=== PATIENT | female | born 1995 | race Caucasian/White ===

== ENCOUNTER 2021-12-21 05:22 | Inpatient (IN) | payer OTHER ==
[2021-12-21] VITALS (44 sets, daily range): BP systolic 77–127; BP diastolic 34–71
[~2021-12-21] VITALS: Ht 152.4 cm; Wt 50.8 kg
[2021-12-21 06:04] LABS: BE(vivo) -0.8 mmol/L (-2 to +3); HCO3 24.6 mmol/L (22.0-26.0); PCO2 43.5 mmHg (35.0-45.0); PO2 220.5 mmHg (80.0-100.0); pH 7.371 (7.360-7.450); sO2 99.4 % (92.0-98.0)
[2021-12-21 06:05] LABS: HEMATOCRIT 41.5 % (37.0-47.0); HEMOGLOBIN 13.9 gm/dL (12.0-15.0); MCH 30.8 pg (26.0-34.0); MCHC 33.6 g/dL (28.0-37.0); MCV 91.9 fL (80.0-100.0); RBC 4.52 mil/uL (4.20-5.00); RDW 12.6 % (10.5-14.5); WBC 5.7 thou/uL (4.0-11.0)
[2021-12-21 06:20] LABS: URINE BILIRUBIN NEGATIVE (Negative); URINE BLOOD 2+ (Negative); URINE CLARITY CLEAR; URINE COLOR YELLOW; URINE GLUCOSE-RANDOM* NEGATIVE (Negative); URINE KETONES NEGATIVE (Negative); URINE PROTEIN (DIPSTICK) NEGATIVE (Negative); URINE SPECIFIC GRAVITY 1.015 (1.005-1.035); URINE UROBILINOGEN 0.2 E.U./dl (0.2-1.0)
--- NOTE | 2021-12-21 06:23 | NUR ---
PT LIVES WITH VALDEZ MARLEY AND HIS MOTHER, WHO IS A CHEF KITCHEN MANAGER AT THIS FACILITY. WHEN ASKED ABOUT CONTACTING PT MOTHER AND/OR FATHER VALDEZ MARLEY AND HIS MOTHER WERE NOT RECEPTIVE. EXPLAINED THAT WE DOO NEED TO SPEAK TO ONE OF THEM THEY ARE THE LEGAL NEXT OF KIN AND WOULD BE CONTACTED RE MEDICAL DECISIONS. VALDEZ JOSEPH MOTHER PROVIDED ME WITH A PHONE NUMBER STATING THAT IT WAS THE PT BILOGICAL FATHER WHO HAS TRANSITIONED TO LIVING A WOMAN. WHENA ALSO ASKED FOR PT MOTHERS NUMEBER BOTH VALDEZ MARLEY AND HIS MOTHER REFUSED TO PROVIDE ANY INFORMATION. PHONE NUMBER PROVIDED FOR SANTOS(FATHER SHE/HER) [phone]
[2021-12-21 06:28] LABS: ANION GAP 11 mmol/L (7-16); BUN 11 mg/dL (7-18); CHLORIDE 106 mmol/L (98-107); CO2 27 mmol/L (21-32); CREATININE 0.7 mg/dL (0.6-1.0); GLUCOSE 98 mg/dL (74-106); POTASSIUM 3.4 mmol/L (3.5-5.1); SODIUM 144 mmol/L (136-145)
[2021-12-21 06:29] LABS: URINE LEUKOCYTES-REFLEX 1+ (Negative); URINE NITRITE-REFLEX POSITIVE (Negative)
[2021-12-21 06:30] LABS: AMP/METHAMP POSITIVE (Negative); BARBITURATES Negative (Negative); BENZODIAZEPINES Negative (Negative); COCAINE Negative (Negative); METHADONE Negative (Negative); OPIATES Negative (Negative); PCP Negative (Negative)
[2021-12-21 06:39] LABS: ALBUMIN 3.7 g/dL (3.4-5.0); PHOSPHORUS 4.3 mg/dL (2.6-4.7); SALICYLATE < 2.8 mg/dL (2.8-20.0); SGOT 14 U/L (15-37); SGPT 20 U/L (14-59); TOTAL BILIRUBIN 0.2 mg/dL (0.2-1.0)
[2021-12-21 07:10] LABS: BACTERIA-REFLEX >30 Many /HPF (None Seen); MUCUS 0-3 Light strn/LPF (None Seen); SQUAMOUS 4-10 Moderate /LPF (0-3); URINE WBC-REFLEX 6-15 Few /HPF (0-5)
[2021-12-21 07:11] LABS: CASTS None Seen /LPF (None Seen); CRYSTALS None Seen /LPF (None Seen)
[2021-12-21 08:01] LABS: HCO3 24.6 mmol/L (22.0-26.0); PCO2 44.6 mmHg (35.0-45.0); sO2 99.4 % (92.0-98.0)
--- NOTE | 2021-12-21 08:06 | EKG ---
[address] [place] [address] ELECTROCARDIOGRAM REPORT Name: BERNARDO PETERSON Room #: 170-12 ADM IN M.R.#: [id number] Admission: 12/21/21 Attend Phys: Azam Carrasco DO Discharge: Date of : [birth year] Report #: [id number] [facility] ED Test Date: 2021-12-21 Test Time: 07:14:32 Pat Name: BERNARDO PETERSON Department: Room: 170 Gender: F Coat Hanger Shaper Machine Operator: : 1995 Requested By: Ole Feng Order Number: [id number] MD: Adria Maradiaga Measurements Intervals [place] Rate: 102 P: 80 MO: 148 QRS: 91 QRSD: 99 T: 70 QT: 340 QTc: 443 Interpretive Statements Sinus tachycardia Borderline right axis deviation Compared to ECG 12/21/2021 05:57:15 No significant changes Electronically Signed On 12-21-2021 8:06:33 PROMOTIONAL MODEL by Adria Maradiaga [email or web address] <ELECTRONICALLY SIGNED> By: Adria Maradiaga MD, [facility] 12/21/21805 3 3 Adria Maradiaga MD, FACC /EPI
--- NOTE | 2021-12-21 08:06 | EKG ---
[address] [address] ELECTROCARDIOGRAM REPORT Name: BERNARDO PETERSON Room #: 170-12 ADM IN M.R.#: [id number] Admission: 12/21/21 Attend Phys: Azam Carrasco DO Discharge: Date of : [birth year] Report #: [id number] [facility] ED Test Date: 2021-12-21 Test Time: 05:57:15 Pat Name: BERNARDO PETERSON Department: Room: 170 Gender: F Continuing Education Specialist: yovana : 1995 Requested By: Osmin Thomas Order Number: [id number] MD: Adria Maradiaga Measurements Intervals [place] Rate: 124 P: 75 FL: 156 QRS: 117 QRSD: 99 T: 58 QT: 318 QTc: 457 Interpretive Statements Sinus tachycardia Right axis deviation No previous ECG available for comparison Electronically Signed On 12-21-2021 8:06:26 WINDOW GLAZIER by Adria Maradiaga [email or web address] <ELECTRONICALLY SIGNED> By: Adria Maradiaga MD, [facility] 12/21/21 [phone] Adria Maradiaga MD, FACC /EPI
--- NOTE | 2021-12-21 08:16 | NUR ---
Dr. COVARRUBIAS AT BEDSIDE, ASKED ABOUT HOURLY EKG ORDER FOR ICU FLOOR. DR COVARRUBIAS REPORTS DUE TO NO CHANGES IN EKG WE CAN D/C HOURLY EKGS. NO EXISTING ORDERS. SENIOR CORE JAVA DEVELOPER NOTIFIED.
--- NOTE | 2021-12-21 10:00 | EKG ---
[address] [place] [employer] [place] [address] ELECTROCARDIOGRAM REPORT Name: BERNARDO PETERSON Room #: 236-P ADM IN M.R.#: [id number] Admission: 12/21/21 Attend Phys: Azam Carrasco DO Discharge: Date of : [birth year] Report #: [id number] [facility] ED Test Date: 2021-12-21 Test Time: 08:03:30 Pat Name: BERNARDO PETERSON Department: Room: 236 P Gender: F Safe Technician: CARLOS : 1995 Requested By: Ole Feng Order Number: [id number] MD: Valentino Dempsey Measurements Intervals [place] Rate: 96 P: 79 [place]: 145 QRS: 91 QRSD: 100 T: 68 QT: 357 QTc: 452 Interpretive Statements Sinus rhythm Borderline right axis deviation Compared to ECG 12/21/2021 07:14:32 Sinus tachycardia no longer present Electronically Signed On 12-21-2021 10:00:12 EPITAXIAL REACTOR TECHNICIAN by Valentino Dempsey [email or web address] <ELECTRONICALLY SIGNED> By: Valentino Demspey MD, [facility] 12/21/21 1000 [id number] 2 Valentino Dempsey MD, FACC /EPI
--- NOTE | 2021-12-21 11:32 | NUR ---
Case discussed with the care team. Pt newly admitted to the ICU via the ER d/t overdose. Pt is currently intubated, is able to follow commands. History obtained by the unit staff is from pt's sign other and his mother. She reportedly lives with them in [place] and works as a delievery special education bus driver. She has hx of mood disorder and has several prescriptions for mental health. Her uds was + amph/meth. She has health insurance in place. They were resistent to provide next of kin information for pt's parents but ultimately did provide a phone number for her biological father Sheyla who is transgender(she/her) if needed. Pt is improving and will hopefully be able to be extubated within 24hrs. Staff will need to clarify pt's emergency contact/spokesperson with the pt. CM assessment deferred until pt is able to participate. Sariah armas is pending as well. Pt will likely need inpt psych tx once medically stable for suicide attempt.
--- NOTE | 2021-12-21 13:54 | NUR ---
VASCULAR ACCES NOTE TRIPLE LUMEN PICC TO MIKAELA BASILIC VEIN TRIMMED AT 38 CM WITH 0.0 CM EXTERNAL LENGTH. OK TO USE THE PICC LINE. PICC TIP CONFIRMED WITH 3CG/ECG TECHNOLOGY.
[2021-12-21 14:07] LABS: CALCIUM 7.9 mg/dL (8.5-10.1); CREATININE 0.6 mg/dL (0.6-1.0); MAGNESIUM 1.9 mg/dL (1.8-2.4); POTASSIUM 3.4 mmol/L (3.5-5.1)
--- NOTE | 2021-12-21 18:37 | NUR ---
0837: PT ADMITTED FROM ER ON VENTILATOR. PT SUSPECTED OVERDOSE. PT SEDATED ON PROPOFOL. PT VITAL SIGNS STABLE.
[2021-12-22] VITALS (22 sets, daily range): BP systolic 75–108; BP diastolic 33–68
--- NOTE | 2021-12-22 00:42 | NUR ---
2138 - PTS MOM (MARICRUZ) WHO IS DESIGNATED CONTACT CALLED AND WAS REQUESTING AND UPDATE ON PTS CONDITION. PTS MOM WAS ABLE TO GIVE THE SECURITY CODE, AND WAS UPDATED ON PTS STATUS GIVEN. 2219 - PTS GRANDMA CALLED UP AND WAS REQUESTING INFORMATION. SHE DID NOT HAVE THE SECURITY CODE AND NO INFORMATION WAS GIVEN TO HER. 2334 - PTS DAD (MAX, WHO GOES BY [place]) CALLED UP AND WAS ASKING ABOUT PT. HE DID NOT HAVE THE SECURITY CODE AND NO INFORMATION WAS GIVE. DAD WAS STATING PTS LIVING CONDITIONS "WERE NOT ADEQUATE" AND SHES BEING "BOARDED UP" AT HER BOYFRIENDS HOUSE. HE WAS ALSO REQUESTING THAT THE BF AND BF'S MOM NOT BE ABLE TO SEE THE PT WHILE SHE'S HERE THEY ARE BOTH "ADDICTS".
[2021-12-22 03:25] LABS: HEMATOCRIT 32.1 % (37.0-47.0); MCHC 33.6 g/dL (28.0-37.0); MCV 92.5 fL (80.0-100.0); RBC 3.47 mil/uL (4.20-5.00); RDW 12.4 % (10.5-14.5); WBC 7.4 thou/uL (4.0-11.0)
[2021-12-22 03:26] LABS: HEMOGLOBIN 10.8 gm/dL (12.0-15.0)
[2021-12-22 04:07] LABS: ALBUMIN 2.5 g/dL (3.4-5.0); CALCIUM 7.5 mg/dL (8.5-10.1); CREATININE 0.5 mg/dL (0.6-1.0); POTASSIUM 3.3 mmol/L (3.5-5.1); TOTAL BILIRUBIN 0.3 mg/dL (0.2-1.0); TOTAL PROTEIN 5.2 g/dL (6.4-8.2)
--- NOTE | 2021-12-22 08:03 | NUR ---
PT'S MOM, MARICRUZ PRATT, CALLED IN TO CK ON PT, THEN ASKED TO SPEAK TO IN FLIGHT REFUELING CRAFTSMAN. MOM WAS VERY UPSET WHEN SHE WAS INFORMED THAT NO VISITORS ARE ALLOWED UNTIL SEEN BY PSYCH AND PSYCH MAKES DECISION. EXPLAINED REASONING BEHIND RULE. 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 FINALLY STATED SHE UNDERSTOOD BUT NOT HAPPY.ASSURED MOM WE WOULD KEEP HER UPDATED.ALSO INFORMED THAT MOM IS THE ONLY CONTACT WE ARE GIVING INFORMATION OUT TO, AND TO PLEASE PASS THIS ALONG TO PT'S DAD & GR.MOTHER.NO OTHER ISSUES AT THIS TIME.--VW
--- NOTE | 2021-12-22 10:57 | NUR ---
pT EXTUBATED AT 1045 BY RT. PT TOLERATED EXTUBATION WELL. VITAL SIGNS REMAINED STABLE. PT ON ROOM AIR AND SLEEPING COMFORTABLY. SITTER IN ROOM
--- NOTE | 2021-12-22 13:27 | NUR ---
ATTEMPTED TO CONTACT MARICRUZ (MOTHER) PHONE WENT STRAIGHT TO VOICEMAIL. RN LEFT A VOICEMAIL. APPROXIMATELY 15 MINUTES LATER GRANDMOTHER CALLED DEMANDING INFORMATION. RN REMINDED HER THAT ONLY HER MOTHER IS RECEIVING INFORMATION AT THIS TIME AND SHE NEEDS TO CONTACT HER FOR INFORMATION. CAS STARTED TO YELL AND SAY "WHAT ARE YOU ALL HIDING". RN REPLIED WITH THE SAME INFORMATION THAT ONLY MARICRUZ WAS TO RECEIVE INFORMATION. CAS THEN HUNG UP THE PHONE.
[2021-12-23] VITALS (20 sets, daily range): BP systolic 82–103; BP diastolic 35–56
--- NOTE | 2021-12-23 09:32 | NUR ---
0730: RN RECEIVED INFORMATION FROM LANIE SAUNDERS THAT PT'S MOTHER, MARICRUZ, HAS BEEN APPROVED BY THE CNO TO VISIT PT DESPITE POLICY FOR PT TO HAVE NO VISITORS UNTIL CLEARED TO BY PSYCH TEAM. 0920: PT'S MOTHER ARRIVED ON UNIT. RN NOTIFIED LANIE MONTOYA WHO NOTIFIED ENA, NURSE LANDSCAPING MANAGER. PT APPEARS HAPPY TO SEE HER MOTHER, SMILING. PT REPORTS SHE WAS BEING "BORADED UP" BY BOYFRIEND AND HIS MOTHER AND DOES NOT WANT ANYTHING TO DO WITH THEM. PT REQUESTING TO LEAVE HOSPITAL DUE TO HAVING CONCERNS FOR BOYFRIENDS FAMILY MEMBER, KEVIN, WORKING AT [employer]. RN EXPLAINED THAT PT IS SAFE HERE, STAFF HAS BEEN ALERTED AND ONLY PT'S MOTHER AND DIRECTLY APPROVED RELATIVES ARE ABLE TO GAIN INFORMATION VIA TELEPHONE ONCE PRESENTING PT'S SECURITY CODE. RN ALSO REITERATED THAT THERE ARE STRICT VISITING GUIDELINES AND NOBODY ASIDE FROM PT'S MOTHER WILL BE ALLOWED ON UNIT. PT'S MOTHER REINFORCED THAT "WE NEED TO GET YOU BETTER FIRST" AND THEN PT WILL BE ALLOWED TO DISCHARGE TO APPROPRIATE PLACE. RN ENSURED PT WOULD NOT BE DISCHARGED BACK TO HER BOYFRIENDS HOUSE IF THAT IS AN UNSAFE ENVIRONMENT. PT VERBALIZES UNDERSTANDING. RN ALLOWED PT TO HAVE HER GLASSES AND PRINTED PHOTOGRAPHS OF HER SON.
--- NOTE | 2021-12-23 09:36 | NUR ---
0800: ASSESSMENT COMPLETE DOCUMENTED. PT DENIES ANY ACTIVE SUICIDAL IDEATION OR INTENT AT THIS TIME.
--- NOTE | 2021-12-23 09:37 | NUR ---
0930: RN DISCUSSED PT'S HYPOTENSION WITH DR. LARA. NOTIFIED HIM THAT DESPITE REPOSITIONING OF CUFF, AROUSING PT, AND IVF, BP REMAINS IN 80S/40S WITH MAPS BETWEEN 55-60. PT WITH ADEQUATE UOP, HR WNL, DENIES DIZZINESS/LIGHT HEADEDNESS. PER DR. LARA, NO ACUTE CONCERNS DUE TO PT'S AGE AND THAT SHE HAS BEEN IN BED FOR TWO DAYS WITHOUT OTHER SYMPTOMS. TELEPHONE ORDER TO ALLOW PT TO GET UP TO EOB AND MOVE AROUND. OKAY TO DC MOON. WILL CONTINUE TO MONITOR AND NOTIFY DR. LARA IF BP DOES NOT IMPROVE OR WORSENS.
--- NOTE | 2021-12-23 10:10 | NUR ---
0955: DR. LARA AT BEDSIDE. OKAY TO START PT ON REGULAR DIET ONCE CLEARED BY GLASS ENGRAVER. NO ACUTE CHANGES TO POC, AWAIT FURTHER RECS FROM PSYCH.
--- NOTE | 2021-12-23 10:15 | NUR ---
1015: PT'S MOM LEFT TO GO HOME. RN TO UPDATE HER IF ANY CHANGES MADE TO POC.
--- NOTE | 2021-12-23 12:08 | NUR ---
1145: DR. CARABALLO AND ROSY, FROM [facility] AT BEDSIDE FOR EVAL AT THIS TIME.
--- NOTE | 2021-12-23 12:52 | NUR ---
1250: RN DISCUSSED POC WITH DR. LARA. RN REQUESTING IF PT CAN BE DOWNGRADED TO FLOOR STATUS PT MEDICALLY STABLE. OKAY TO CHANGE LEVEL OF CARE TO MED/SURG PER DR. LARA. RN ALSO NOTIFIED DR. LARA THAT PSYCH JUST SAW PT AND IS RECOMMENDING INPATIENT PSYCH SETTING AT [facility], BUT PER BEHAVIORAL HEALTH, UNLIKELY TO BE TODAY DUE TO BED AVAILABILITY.
--- NOTE | 2021-12-23 13:28 | NUR ---
Case discussed in ICU rounds. Psych eval recommending inpt tx. Pt is voluntary. The pt is medically cleared for dc to inpt psych today. [facility] is aware and will be in to visit with the pt. They have indicated that inpt psych beds are tight today. Pt has clarified her mother Amber as her emergency contact and her record has been updated to reflect her request. Pt has 1:[address] Pt's mother spoke with the unit russel Winters and provided extensive psycho/social history. Pt has had a previous inpt psych stay at [facility] in [facility] 2years ago and extensive substance abuse history. Pt's mother has custody of her son. [facility] form and cobra transfer form is on the front of the chart for completion once a inpt psych bed has been located. [facility] will follow.
--- NOTE | 2021-12-23 16:03 | NUR ---
Per collator operator: Karan Burt discussion on 12-22-21: At 1055 collator operator noted: Discussed during Length of Stay (LOS) with the attending physician. The patient remains on a vent, reviewed pulmonary input for extubation. Noted attending placed: A psych consult for DX: of OD/SI. At 1600 collator operator noted: collator operator received a voice message from patient's Mother Amber [phone], requesting a call back. CM spoke with the bedside nurse who was siting 1:1 with the patient. The patient was extubate and stated she wants her grandmother as a contact. CM then at bedside asked the patient if it was ok for patient mom to received information and for the gearcase assembler to call her Mother Amber? Patient verbally reported to the bedside nurse yes. CM called patient's Mother. Allowed Mother to discuss concerns and reviewed questions. Per the Mother the pt had been staying with her boyfriend and the boyfriends Mother. The patient's mother reports the reason she and her daughter (pt) do not get along has been that the she been raising grandchildren and her rule is that there are no drugs in the home. Discovered that the Pt. has previously been to in-pt psych at [facility]. The mother reports a history of drug abuse. As the mother works at [employer], she then stated the patient has too been there. CM learned that there has been no follow up for addiction since discharging from [facility]. The mother's concerns were passed to medical team. Prior to ending conversation the Mother requested that her daughter be told that her Mother was aware she was a patient and that she did indeed love her daughter. CM attempted to do so and patient was lying in bed with eyes closed. All of above was passed on to the bedside nurse. Will await psych recommendation for discharge. Once determination made and medically stabilizing, VANDANA will work with MD and possible therapy to determine next level of care and subsequent discharge needs.
--- NOTE | 2021-12-23 17:10 | NUR ---
1700: RN RECEIVED CALL FROM DR. OROSCO STATING THAT ADMINISTRATION WOULD LIKE TO KEEP PT ON ICU AT THIS TIME FOR HER SAFETY AND TO MINIMIZE VISITOR ACCESS TO HER. OKAY TO KEEP MED/SURG LEVEL OF CARE/VS/ORDERS, BUT NOT TO PHYSICALLY MOVE PT UNLESS NOTIFIED BY AN ATTENDING PHYSICIAN. PER DR. OROSCO, PT'S PRIMARY HOSPITALIST, DR. LARA, AND CASE MANAGEMENT ARE AWARE. RN UPDATED KRISTINE MATABUFFING AND POLISHING WHEEL REPAIRER AND MEREDITH MONTOYA RN NOTIFIED.
--- NOTE | 2021-12-23 17:13 | NUR ---
RN SPOKE WITH DR. CARABALLO VIA TELEPHONE REGARDING PT'S REQUEST FOR HER BELONGINGS, PER DR. CARABALLO, PT CAN HAVE HER STUFFED BEAR, BUT NO CELL PHONE, PENS, OR CLOTHING. PT NOTIFIED AND SHE VERBALIZES UNDERSTANDING.
--- NOTE | 2021-12-23 22:58 | NUR ---
PT ALERT AND ORIENTED X4. PLEASANT AND COOPERATIVE. NO VERBALIZATION OF SI OR INTENT NOTED TONIGHT SO FAR. 1:1 SITTER IS AT BEDSIDE. ADVOCATE FROM [facility] CAME TO SPEAK WITH PT AND HELPED PT INITIATE POLICE REPORT WITH [facility]. ADVOCATE IS CURRENTLY ATTEMPTING TO GET A RESTRAINING ORDER IN PLACE. HRR 96, BP 103/56, T 99. RR 16. 100% ON RA. ENCOURGED PO INTAKE. PT STATED SHE HAS NOT HAD A BM IN SEVERAL DAYS DUE TO SHE HAS NOT HAD FOOD FOR AT LEAST THREE DAYS PRIOR TO ADMISSION. WILL CONTINUE TO MONITOR PT CLOSELY.
[2021-12-24 05:37] VITALS: BP 89/46
--- NOTE | 2021-12-24 07:34 | NUR ---
PT HAS HAD NO VERBALIZATION OF SI OR INTENT OVERNIGHT. VSS AFEBRILE THIS AM. SATS 98-100% ON RA. GOOD PO FLUID INTAKE. ADVOCATE FOR [facility] WAS ABLE TO GET ORDER FOR PROTECTION . COPY PLACED ON CHART. PT HAS BEEN PLEASANT AND COOPERTIVE TONIGHT. NO C/O FROM PT TONIGHT.
[2021-12-24 08:30] VITALS: BP 87/45
--- NOTE | 2021-12-24 09:42 | NUR ---
0940: DR. LARA AT BEDSIDE. DISCUSSED ORDER FOR IVF, RN HAS STOPPED THIS AM PT EATING AND DRINKING APPROPRIATELY. OKAY TO DC ORDER PER DR. LARA. RN TO UPDATE MD REGARDING IF BEHAVIORAL HEALTH REP FINDS PLACEMENT.
[2021-12-24 11:42] VITALS: BP 95/49
--- NOTE | 2021-12-24 13:20 | NUR ---
1300: RN SPOKE WITH GUDELIA HAMMER, JANET DIAMOND WITH [facility]. PT WAS REEVALUATED FOR DISPO PLANS. SAFETY PLAN DEVELOPED, COPY PLACED IN CHART AND ADDITIONAL COPY PROVIDED TO PATIENT. UPDATED ASSESSMENT FROM [facility] IS TO DISCHARGE PT HOME TO MOTHER WITH OUTPATIENT FOLLOW UP. THIS PLAN APPROVED BY DR. CARABALLO LONG PT'S MOTHER PROVIDES VERBAL ACCEPTANCE.
--- NOTE | 2021-12-24 13:24 | NUR ---
1320: RN ATTEMPTED TO CALL PT'S MOTHER AT THIS TIME WITH NO ANSWER.
--- NOTE | 2021-12-24 13:39 | NUR ---
1335: RN SPOKE WITH PT'S MOTHER, MARICRUZ, VIA TELEPHONE. RN NOTIFIED HER OF PSYCH'S REASSESSMENT AND PLANS TO DC HOME WITH MOTHER WITH SAFETY PLAN AND RECOMMENDATIONS TO FOLLOW UP OUTPATIENT. PT'S MOTHER, MARICRUZ, VERBALIZES UNDERSTANDING AND DENIES ACUTE CONCERNS. SHE REPORTS SATISFACTION AND AGREE WITH THIS DC PLAN. RN TO NOTIFY HER VIA PHONE WHEN PT'S DISCHARGE IS COMPLETED SO SHE CAN COME PICK PT UP.
--- NOTE | 2021-12-24 13:42 | NUR ---
1340: RN NOTIFIED DR. LARA THAT DR. CARABALLO AND BEHAVIORAL HEALTH RECOMMEND DC TO HOME WITH MOTHER. TO PLACE DC ORDERS.
[2021-12-24 14:17] VITALS: BP 95/49
--- NOTE | 2021-12-24 15:06 | NUR ---
1500: PT WAS DISCHARGED HOME WITH MOTHER AT THIS TIME. PT TAKEN VIA WHEELCHAIR TO MOM'S VEHICLE. RN PROVIDED PT WITH DC INSTRUCTIONS AND EDUCATION, RESOURCES FOR OUTPATIENT MENTAL HEALTH, JE CARMONA BUSINESS CARD, AND COPY OF RESTRAINING ORDER MADE WITH ASSISTANCE BY JE CARMONA. RN PROVIDED PT'S MOTHER SEALED MEDICATION BAG WITH MEDS PT BROUGHT FROM HOME. THIS RN NOTIFIED KRISTINE CHAIDEZHARBOUR MASTER THAT HOME MEDS WERE SENT WITH PT'S MOM AND THAT PT'S MOM HAS MEETING WITH [facility] QUALITY ASSURANCE CLERK ON SUNDAY. PT AND MOM DENY QUESTIONS OR CONCERNS AT TIME OF DC.
== END 2021-12-24 14:57 | disposition home or self-care (01) | DRG 917 ==
LOC: ER 05:22 → EROBS 07:35 → ICU 07:35
PROVIDERS: Emergency Medicine; Internal Medicine Pulmonary Disease; Psychiatry & Neurology Psychiatry; ADMIT Pediatrics; ATTEND Pediatrics
PROC: 5A1945Z Respiratory Ventilation, 24-96 Consecutive Hours (ICD-10-PCS; principal; 2021-12-21)
PROC: 0BH17EZ Insertion of Endotracheal Airway into Trachea, Via Natural or Artificial Opening (ICD-10-PCS; principal; 2021-12-21)
PROC: 05HY33Z Insertion of Infusion Device into Upper Vein, Percutaneous Approach (ICD-10-PCS; 2021-12-21)
DX: T50.992A Poisoning by other drugs, medicaments and biological substances, intentional self-harm, initial encounter (principal); J96.01 Acute respiratory failure with hypoxia; G92.8 Other toxic encephalopathy; N39.0 Urinary tract infection, site not specified; F39 Unspecified mood [affective] disorder; E87.6 Hypokalemia; F32.9 Major depressive disorder, single episode, unspecified; F43.10 Post-traumatic stress disorder, unspecified; I95.9 Hypotension, unspecified; F12.10 Cannabis abuse, uncomplicated; F28 Other psychotic disorder not due to a substance or known physiological condition; Z20.822 Contact with and (suspected) exposure to COVID-19; Z79.899 Other long term (current) drug therapy; Y92.89 Other specified places as the place of occurrence of the external cause; Z71.51 Drug abuse counseling and surveillance of drug abuser
CPT/HCPCS: 10078